=== PATIENT | female | born 1955 | race Caucasian/White ===

== ENCOUNTER 2018-11-23 07:44 | Day surgery (SDC) | payer MEDICARE, BC ==
[2018-11-23] MEDS ORDERED: LIDOCAINE HCL 1% MPF 30 SOL ONE (08:24)
[2018-11-23] MEDS ORDERED: PROPOFOL 500 MG/50 ML EMU IV ONE (08:24)
[2018-11-23 09:30] VITALS: RESP 20
[2018-11-23 09:41] VITALS: TEMP 97.1
[2018-11-23 09:50] VITALS: O2SAT 100
[2018-11-23 09:54] VITALS: BP 132/86; PULSE 82
== END 2018-11-23 10:15 | disposition home or self-care (01) | DRG 392 ==
LOC: SURG 07:44
PROVIDERS: ATTEND Internal Medicine Gastroenterology
DX: R19.7 Diarrhea, unspecified (principal); K57.30 Diverticulosis of large intestine without perforation or abscess without bleeding; K64.9 Unspecified hemorrhoids; K52.89 Other specified noninfective gastroenteritis and colitis; Z12.11 Encounter for screening for malignant neoplasm of colon
CPT/HCPCS: J2001; J2704